=== PATIENT | male | born 1985 | race Caucasian/White ===

== ENCOUNTER → 2021-08-13 15:16 | Outpatient (CLI) | payer OTHER, SELFPAY ==
--- NOTE | 2021-08-13 15:22 | XR_ITS ---
FINAL REPORT CLINICAL HISTORY: RT WRIST PAIN. no trauma. posterior wrist pain. some swelling FINDINGS: RIGHT WRIST Three views of the right wrist were obtained. There is fragmentation of the proximal aspect of the lunate which may represent sequela of osteonecrosis or possibly a fracture. There is a 4 mm bony fragment at the volar aspect of the wrist on the lateral view. There is soft tissue swelling. IMPRESSION: Fragmentation of the proximal aspect of the lunate may represent sequela of osteonecrosis or possible fracture. Bony fragment at the volar aspect of the wrist measuring 4 mm. Reviewed, Interpreted and Dictated by Leo Davila III, MD Transcribed by Mirtha Kidd Authenticated by Leo Davila III, MD on 08/13/2021 04:36:57 PM [facility]
== END ==
PROVIDERS: PCP Nurse Practitioner Family; Visit Provider Nurse Practitioner Family
DX: M25.531 Pain in right wrist (principal)
CPT/HCPCS: 73110

== ENCOUNTER 2022-02-09 18:25 | Emergency (ER) | payer OTHER, SELFPAY ==
--- NOTE | 2022-02-09 19:08 | EXP.UTC ---
Discharge Plan Disposition Patient Disposition: Home, Self-Care Condition: Good Prescriptions Prescriptions: New azithromycin [Zithromax] 250 mg tablet 250 mg PO UD DOSE PK Qty: 6 0RF Rx Instructions: Take two (2) tablets today, then one (1) tablet days #2 thru #5 benzonatate [benzonatate] 100 mg capsule 100 mg PO TIDP PRN (Reason: Cough) Qty: 30 0RF methylprednisolone 4 mg Tablets,Dose Pack 4 mg PO DIRECTED Qty: 21 0RF No Action cephalexin 500 MG capsule 500 mg PO TID Qty: 30 0RF Referrals Follow up/Referrals: Fredi Sorto MD [Primary Care Provider] - See instructions Activity Restrictions/Add. Instructions Additional Instructions/Restrictions: Drink plenty of fluids. Take tylenol or ibuprofen for pain or fever. Take the medications as directed. Follow up with your regular doctor. GO TO THE ER FOR ANY WORSENING SYMPTOMS Clinical Impressions Clinical Impression: Bronchitis, Acute viral syndrome Stand Alone Forms Stand Alone Forms: Work/School Release Instructions Patient Instructions: Acute Bronchitis, DI for Acute Bronchitis, DI for Viral Syndrome Discharge ED Provider: Ashwin Lima [facility] General Stated complaint: cough, low grade fever, sore throat, congestion Time Seen by Provider: 02/09/22 19:08 History of Present Illness Provider Complaint: He states that since yesterday he has had fever, chills, sore throat, and a productive cough with greenish sputum. Related Data Previous Rx's Medication Instructions Recorded cephalexin 500 mg capsule 500 mg PO TID #30 caps 11/08/18 azithromycin 250 mg tablet 250 mg PO UD DOSE PK #6 tabs 02/09/22 (Zithromax) benzonatate 100 mg capsule 100 mg PO TIDP PRN Cough #30 caps 02/09/22 methylprednisolone 4 mg tablets in 4 mg PO DIRECTED #21 tabs 02/09/22 a dose pack Allergies Allergy/AdvReac Type Severity Reaction Status Date / Time ASA (aspirin) Allergy Intermediate I-ITCHING Uncoded 03/15/17 15:14 Codeine Allergy Unknown Uncoded 03/15/17 15:14 [facility] Social History Smoking Status: Current every day smoker tobacco type: cigarettes packs per day: 1 alcohol intake: never current occupational status: unemployed Travel in the last 8 weeks: None ROS Obtained: Yes All systems reviewed & no additional complaints except as documented Constitutional Constitutional: Reports chills and Reports fever(s) Eyes Eyes: Denies eye discharge ENT Ears, Nose, Mouth, and Throat: Reports as per HPI Cardiovascular Cardiovascular: Denies chest pain Respiratory Respiratory: Denies chest congestion and Reports cough Gastrointestinal Gastrointestingal: Reports nausea; Denies abdominal pain, constipation, cramping, diarrhea or vomiting Musculoskeletal Musculoskeletal: Denies arthralgias Integumentary/Breasts Skin/Breast: Denies rash Neurologic Neurologic: Denies paresthesias Physical Exam General General appearance: alert and in no apparent distress Head Head exam: atraumatic, normocephalic and normal inspection Eye Eye exam: Present normal appearance, PERRL and EOMI ENT ENT exam: Present normal exam, normal oropharynx, mucous membranes moist, TM's normal bilaterally and normal external ear exam Neck Neck exam: Present normal inspection, full ROM and trachea midline; Absent meningismus or lymphadenopathy Chest Chest inspection: Present normal inspection and symmetric chest wall rise; Absent tenderness Respiratory Respiratory exam: Present normal lung sounds bilaterally; Absent respiratory distress Cardiovascular Cardiovascular exam: Present regular rate and normal rhythm; Absent JVD Abdominal Exam Abdominal exam: Present soft and normal bowel sounds; Absent distention, tenderness or guarding Extremities Exam Extremities exam: Present normal inspection, full ROM and normal capillary refill; Absent calf tenderness Back Exam Back exam: Present norm
[2022-02-09 19:35] LABS: UTC Strep Screen (Rapid) Negative (Negative)
[2022-02-09 19:36] LABS: UTC Influenza A Antigen Negative (Negative)
[2022-02-09 19:37] LABS: UTC Influenza B Antigen Negative (Negative)
[2022-02-09 19:39] VITALS: BP 146/103; PULSE 99; RESP 18; TEMP 37.1; O2SAT 99; BMI 18.4
[2022-02-09 20:11] LABS: Adenovirus,PCR Not Detected (NotDetected); Bordetella Pertussis Not Detected (NotDetected); Chlamydophila Pneumoniae, PCR Not Detected (NotDetected); Coronavirus 19, PCR Not Detected (NotDetected); Coronavirus 229E Not Detected (NotDetected); Coronavirus NL63 Not Detected (NotDetected); Coronavirus OC43 Not Detected (NotDetected); Coronovirus HKU1,PCR Not Detected (NotDetected); Human Metapneumovirus Not Detected (NotDetected); Influenza A, PCR Not Detected (NotDetected); Influenza AH1, 2009 Not Detected (NotDetected); Influenza AH1, PCR Not Detected (NotDetected); Influenza AH3,PCR Not Detected (NotDetected); Influenza B, PCR Not Detected (NotDetected); Mycoplasma Pneumoniae, PCR Not Detected (NotDetected); Parainfluenza 2, PCR Not Detected (NotDetected); Parainfluenza 3, PCR Not Detected (NotDetected); Parainfluenza 4, PCR Not Detected (NotDetected); Respiratory Syncytial Virus Not Detected (NotDetected); Rhinovirus/Enterovirus Not Detected (NotDetected)
[2022-02-09 20:16] VITALS: BP 146/103; PULSE 99; RESP 18; TEMP 37.1
[2022-02-10 18:19] LABS: Parainfluenza 1, PCR Detected (NotDetected)
== END 2022-02-09 20:16 | disposition home or self-care (01) ==
PROVIDERS: Emergency Provider Nurse Practitioner Family; PCP Internal Medicine Adolescent Medicine
DX: J20.4 Acute bronchitis due to parainfluenza virus (principal)
CPT/HCPCS: 87581; 87632; 87798; 87804; 87880; 99212; C9803; G0463; U0003; U0005

== ENCOUNTER 2022-04-15 00:12 | Emergency (ER) | payer OTHER, SELFPAY ==
[2022-04-15 00:14] VITALS: BP 107/76; PULSE 90; RESP 17; TEMP 36.6; O2SAT 99; BMI 19.3
[2022-04-15 00:20] VITALS: BMI 25.1
--- NOTE | 2022-04-15 00:24 | XR_ITS ---
PROCEDURE INFORMATION: Exam: XR Right Wrist Exam date and time: 04/15/2022 12:20 AM Age: 36 years old Clinical indication: Patient HX: PT states pain for a while, however tonight he was working on his truck and injured right hand/wrist causing increase in pain; Additional info: Injury TECHNIQUE: Imaging protocol: Radiologic exam of the Right wrist. Views: 3 or more views. COMPARISON: CR XR WRIST RT MIN 3V 08/13/2021 3:24 PM FINDINGS: Bones/joints: Partially sclerotic and partially lucent appearance of the lunate bone is compatible with old injury or osteonecrosis. No acute fracture evident. Alignment of the carpal bones appears normal. Mild degenerative changes noted in the radiocarpal joint. Soft tissues: Normal. 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 No acute fracture seen.
--- NOTE | 2022-04-15 00:24 | XR_ITS ---
PROCEDURE INFORMATION: Exam: XR Right Hand Exam date and time: 04/15/2022 12:22 AM Age: 36 years old Clinical indication: Patient HX: PT states pain for a while, however tonight he was working on his truck and injured right hand/wrist causing increase in pain; Additional info: Injury TECHNIQUE: Imaging protocol: Radiologic exam of the Right hand. Views: 3 or more views. COMPARISON: CR XR WRIST RT MIN 3V 04/15/2022 12:20 AM FINDINGS: Bones/joints: Osseous alignment is normal. No acute fracture seen. Evidence of old fracture or osteonecrosis of the lunate bone noted in the wrist. No other osseous abnormality seen. Soft tissues: Normal. IMPRESSION: Chronic findings in the wrist. No acute fracture evident
[2022-04-15 00:38] VITALS: BMI 19.3
[2022-04-15 00:58] VITALS: BP 130/85; PULSE 88; RESP 16; TEMP 36.7; O2SAT 98
--- NOTE | 2022-04-15 00:58 | HMH.EDUPEXT ---
Discharge Plan Disposition Patient Disposition: Home, Self-Care Chief Complaint: Extremity Injury, Upper Prescriptions Prescriptions: No Action No Known Home Medications Referrals Follow up/Referrals: Fredi Sorto MD [Primary Care Provider] - See instructions Clinical Impressions Clinical Impression: Sprain and strain of wrist Instructions Patient Instructions: DI for Wrist Strain Discharge ED Provider: Jacinto Gomez Upper Extremity HPI General Chief Complaint: Extremity Injury, Upper Stated Complaint: AO 04/15/22 17:30 Injury right wrist Time Seen by Provider: 04/15/22 00:58 Mode of Arrival: Family Vehicle Source of Information: Patient, Spouse and Medical Record Limitations: No Limitations Description of Symptoms (Recalled from ER Triage Doc. by RN): Pt c/o R hand and wrist pain. States last night @1700 a muffler fell on it causing swelling and painful extension of wrist. He reports he has an ongoing issue with his R wrist causing occasion pain. States I think it's a bone chip in there . Pt took 800mg Motrin @ 1900 and iced it. Family member gave pt a wrist brace and pt reports it has helped his pain mildly. Radial pulse and [employer] are WNL. History of Present Illness HPI narrative: pt with acute rt wrist/hand injury complaint: injury to: right, wrist and hand Onset (ago): hour(s) Other Extremity Injury: Right: hand and wrist Other injuries: none Handedness: right Place: home Severity: moderate Context: direct blow Associated symptoms: denies other symptoms Related Data Home Medications Medication Instructions Recorded Confirmed No Known Home Medications 04/15/22 04/15/22 Allergies Allergy/AdvReac Type Severity Reaction Status Date / Time ASA (aspirin) Allergy Intermediate I-ITCHING Uncoded 03/15/17 15:14 [facility] Disclaimer: The information contained in this section may have been updated after the patient was seen, as this information can be updated by other users. Social History Smoking Status: Current every day smoker tobacco type: cigarettes packs per day: 1 alcohol intake: never current occupational status: unemployed Travel in the last 8 weeks: None ROS Obtained: Yes All systems reviewed & no additional complaints except as documented Physical Exam General General appearance: alert Head Head exam: normocephalic Eye Eye exam: Present PERRL and EOMI ENT ENT exam: Present mucous membranes moist Neck Neck exam: Present full ROM and trachea midline Respiratory Respiratory exam: Absent respiratory distress Cardiovascular Cardiovascular exam: Present regular rate Abdominal Exam Abdominal exam: Present soft Expanded Upper Extremity Exam Right: Forearm/Wrist exam: Present tenderness and swelling; Absent full ROM Hand exam: Present tenderness and swelling; Absent full ROM Vascular exam: Normal radial pulse Neurological Exam Neurological exam: Present alert, oriented X3 and CN II-XII intact Psychiatric Psychiatric exam: Present normal affect Skin Skin exam: Absent rash Medical Decision Making Medical Records Medical records reviewed: Yes I reviewed the patient's medical records. Jay Inquiry Pt receiving controlled substance: No Vital Signs: 04/15/22 00:14 Temperature 97.9 F Temperature Source Oral Pulse Rate [Left] 90 Respiratory Rate 17 Blood Pressure [Left Arm] 107/76 L Blood Pressure Mean [Left Arm] 86 Blood Pressure Source [Left Arm] Automatic Cuff 02 Sat by Pulse Oximetry 99 Oxygen Delivery Method Room Air Lab Data Lab results reviewed: Yes I reviewed the patient's lab results. Orders (Tests/Meds): ED MEDICATIONS Generic Name Dose Route Start Last Admin Trade Name Beatriz PRN Reason Stop Dose Admin Acetaminophen/Codeine Phosphate 1 packet 04/15/22 00:56 Acetaminophen 300mg W/Codeine 30mg Take Home Pack (6) PO 04/15/22 00:57 ONCE ONE OR
== END 2022-04-15 01:14 | disposition home or self-care (01) ==
PROVIDERS: Emergency Provider Emergency Medicine; PCP Internal Medicine Adolescent Medicine
DX: S63.501A Unspecified sprain of right wrist, initial encounter (principal); S66.811A Strain of other specified muscles, fascia and tendons at wrist and hand level, right hand, initial encounter; W20.8XXA Other cause of strike by thrown, projected or falling object, initial encounter; F17.210 Nicotine dependence, cigarettes, uncomplicated
CPT/HCPCS: 73110; 73130; 99283; 99284

== ENCOUNTER 2022-05-26 22:55 | Emergency (ER) | payer OTHER, SELFPAY ==
--- NOTE | 2022-05-26 23:01 | PC.NURSE ---
Dr. Gomez at
--- NOTE | 2022-05-26 23:16 | PC.NURSE ---
Dr. Gomez states pt is going to leave without being completely seen.
[2022-05-26 23:20] VITALS: BP 136/88; PULSE 92; RESP 20; TEMP 36.6; O2SAT 99
== END 2022-05-26 23:30 | disposition left against medical advice (07) ==
LOC: ER 23:30
PROVIDERS: Emergency Provider Emergency Medicine
DX: Z53.21 Procedure and treatment not carried out due to patient leaving prior to being seen by health care provider (principal); R51.9 Headache, unspecified
CPT/HCPCS: 99211

== ENCOUNTER 2022-10-27 23:53 | Emergency (ER) | payer OTHER, SELFPAY ==
[2022-10-27 23:55] VITALS: BP 188/134; PULSE 101; RESP 18; TEMP 37.1; O2SAT 98; BMI 19.8
--- NOTE | 2022-10-28 00:04 | CT_ITS ---
PROCEDURE INFORMATION: Exam: CT Maxillofacial With Contrast Exam date and time: 10/28/2022 12:28 AM Age: 37 years old Clinical indication: Jaw pain; Prior surgery; Surgery date: 6+ months; Additional info: L jaw pain and intraoral swelling edentalous TECHNIQUE: Imaging protocol: Computed tomography of the face with contrast. Radiation optimization: All CT scans at this facility use at least one of these dose optimization techniques: automated exposure control; mA and/or kV adjustment per patient size (includes targeted exams where dose is matched to clinical indication); or iterative reconstruction. Contrast material: ISOVUE; Contrast volume: 100 ml; Contrast route: IV; REPORTING DATA: Count of CT and Cardiac NM exams in prior 12 months: This patient has received 0 known CTs and 0 known cardiac nuclear medicine studies in the 12 months prior to the current study. COMPARISON: No relevant prior studies available. FINDINGS: Orbital cavities: Orbits are normal. Globes are unremarkable. Bones/joints: There is malleable plate fixation of the mandibular bodies and mental region. There is lucency surrounding one of the posterior fixation screws of the left mandibular body. The osseous lucency is noted on series 4, centered on images 56 and 57. I do not appreciate an adjacent phlegmon or abscess on this examination. There is perhaps some gingival hypertrophy in this region relative to the right side. The osseous structures are otherwise unremarkable. Paranasal sinuses: There is mild opacification of the ethmoid air cells with mucoperiosteal thickening in the left maxillary sinus. No air-fluid levels. Soft tissues: See Bones/joints finding. IMPRESSION: Lucency surrounding one of the posterior screws fixating the left mandibular body. This may be related to stress related bony resorption however, infection is not entirely excluded. I do not appreciate a phlegmon or abscess. There is perhaps some gingival hyperplasia in this region.
--- NOTE | 2022-10-28 00:11 | HMH.EDGENADL ---
Discharge Plan Disposition Patient Disposition: Home, Self-Care Condition: Good Chief Complaint: PAIN Prescriptions Prescriptions: No Action No Known Home Medications Referrals Follow up/Referrals: Provider,Referral, MD [Primary Care Provider] - See instructions Activity Restrictions/Add. Instructions Additional Instructions/Restrictions: At this time is felt you are safe to be discharged home. If new or worsening symptoms please do not hesitate to return the emergency department. Please take antibiotics as prescribed and follow-up with your dentist or fabricator of your dentures as soon as possible. Clinical Impressions Clinical Impression: Mouth pain Discharge ED Provider: Anoop Zheng General Adult HPI General Chief complaint: PAIN Stated complaint: Left lower jaw pain,has no teeth Time Seen by Provider: 10/27/22 23:57 History of Present Illness HPI narrative: Patient is a 37-year-old male with past medical history of trauma requiring facial surgery on his jaw, currently edentulous who presents to the emergency department for evaluation of jaw pain. Onset was acute, occurring last Tuesday. Left-sided jaw pain and associated swelling. Patient has no difficulty opening his mouth however cannot wear his dentures without significant pain. He acknowledges that they are incorrect size however states that the pain is more due to the swelling on the left mandibular side of his mouth. Afebrile. 1 episode of nonbloody nonbilious vomiting. No other acute complaints at this time. Related Data Home Medications Medication Instructions Recorded Confirmed No Known Home Medications 04/15/22 04/15/22 Allergies Allergy/AdvReac Type Severity Reaction Status Date / Time ASA (aspirin) Allergy Intermediate I-ITCHING Uncoded 03/15/17 15:14 [facility] Disclaimer: The information contained in this section may have been updated after the patient was seen, as this information can be updated by other users. Social History Smoking Status: Current every day smoker tobacco type: cigarettes packs per day: 1 alcohol intake: never current occupational status: unemployed Travel in the last 8 weeks: None ROS Obtained: Yes Systems reviewed as appropriate & no additional complaints except as documented Physical Exam General General appearance: alert and in no apparent distress Head Head exam: atraumatic and normocephalic Eye Eye exam: Present PERRL and EOMI ENT ENT exam: Present mucous membranes moist and other (Edentulous, asymmetric swelling over location where mandibular molars would be anatomically. Tenderness. No overt fluctuance. No trismus.) Neck Neck exam: Present normal inspection and full ROM Chest Chest inspection: Present normal inspection and symmetric chest wall rise Respiratory Respiratory exam: Present normal lung sounds bilaterally; Absent respiratory distress Cardiovascular Cardiovascular exam: Present normal rhythm and tachycardia Abdominal Exam Abdominal exam: Present soft; Absent tenderness Extremities Exam Extremities exam: Present normal inspection Neurological Exam Neurological exam: Present alert and oriented X3 Psychiatric Psychiatric exam: Present normal affect Skin Skin exam: Present warm and dry Medical Decision Making Jay Inquiry Pt receiving controlled substance: No Vital Signs: 10/27/22 23:55 Temperature 98.7 F Temperature Source Oral Pulse Rate [Right Radial] 101 H Respiratory Rate 18 Blood Pressure [Right Arm] 188/134 H Blood Pressure Mean [Right Arm] 152 Blood Pressure Source [Right Arm] Automatic Cuff Blood Pressure Position [Right Arm] Sitting 02 Sat by Pulse Oximetry 98 Oxygen Delivery Method Room Air Lab Data Lab Results 10/28/22 00:19: WBC 8.3, RBC 5.40, Hgb 15.7, Hct 48.8, MCV 90.3, MCH 29.0, MCHC 32.1, RDW 12.8, Plt Count 257, MPV 7.7, Neut % (Auto) 56.4, Lymph % (Auto)
[2022-10-28 00:14] VITALS: BP 166/110; PULSE 89; RESP 18; TEMP 36.6; O2SAT 99
[2022-10-28 00:21] VITALS: BP 169/120; PULSE 97; RESP 20; O2SAT 97
[2022-10-28 00:30] LABS: Basophils # 0.1 K/mm3 (0-0.2); Basophils % 0.9 % (0.1-2.0); Eosinophils # 0.4 K/mm3 (0.0-0.4); Eosinophils % 4.6 % (0.1-12.0); Hematocrit 48.8 % (42.0-52.0); Hemoglobin 15.7 g/dL (14.1-18.0); Lymphocytes # 2.5 K/mm3 (0.7-4.5); Lymphocytes % 30.2 % (10-50); Mean Corpuscular HGB Conc 32.1 g/dL (31.8-35.4); Mean Corpuscular Volume 90.3 fl (80-94); Mean Platelet Volume 7.7 fl (7.4-10.4); Monocytes # 0.7 K/mm3 (0.1-1.0); Neutrophils # 4.7 K/mm3 (1.8-7.8); Neutrophils % 56.4 % (37.0-80.0); Platelet Count 257 K/mm3 (142-424); Red Cell Distribution Width 12.8 % (11.5-17.5); White Blood Count 8.3 K/mm3 (4.8-10.8)
[2022-10-28 00:37] LABS: Alanine Aminotransferase 27 U/L (12-78); Albumin Level 4.8 g/dl (3.5-5.0); Albumin/Globulin Ratio 1.4 (1.1-1.8); Alkaline Phosphatase 67 U/L (38-126); Anion Gap 11.7 mEq/L (5-15); Aspartate Amino Transferase 37 U/L (17-59); Blood Urea Nitrogen 21 mg/dl (9-20); Calcium 9.2 mg/dl (8.4-10.2); Carbon Dioxide 30 mmol/L (22.0-30.0); Chloride 104 mmol/L (98-107); Creatinine Clearance Estimated 106 mL/min (50-200); Estimated Glomerular Filt Rate 94 ml/min (>60); GFR (African American) 114 ML/MIN (>60); Globulin 3.4 g/dL (1.3-3.2); Glucose 101 mg/dl (74-100); Potassium 3.7 mmoL/L (3.5-5.1); Sodium 142 mmol/L (136-145); Total Protein,Serum 8.2 g/dl (6.3-8.2)
[2022-10-28 00:38] LABS: Bilirubin,Total 0.1 mg/dl (0.2-1.3)
[2022-10-28 00:43] LABS: C-Reactive Protein 0.4 mg/L (0-4)
[2022-10-28 01:00] VITALS: BP 166/110; PULSE 90; RESP 18; O2SAT 96
[2022-10-28 01:19] VITALS: BP 151/103; PULSE 89; RESP 18; TEMP 36.6; O2SAT 99
== END 2022-10-28 01:25 | disposition home or self-care (01) ==
PROVIDERS: Emergency Provider Emergency Medicine
DX: R68.84 Jaw pain (principal); K08.109 Complete loss of teeth, unspecified cause, unspecified class; R11.10 Vomiting, unspecified; F17.210 Nicotine dependence, cigarettes, uncomplicated
CPT/HCPCS: 70487; 80053; 85025; 86140; 87040; 96374; 96375; 99285; Q9967

== ENCOUNTER 2023-07-12 09:31 | Emergency (ER) | payer OTHER, SELFPAY ==
[2023-07-12 09:40] VITALS: BP 162/92; PULSE 103; RESP 18; TEMP 37.1; O2SAT 99; BMI 21.1
--- NOTE | 2023-07-12 10:11 | EXP.UTC ---
Discharge Plan Disposition Patient Disposition: Home, Self-Care Condition: Good Prescriptions Prescriptions: New triamcinolone acetonide 0.1 % cream 1 applic topical BID PRN (Reason: itching) Qty: 30 0RF diphenhydramine HCl 25 mg capsule 25 mg PO Q6HP PRN (Reason: Itching) Qty: 30 0RF methylprednisolone 4 mg Tablets,Dose Pack 4 mg PO DIRECTED 6 Days Qty: 21 0RF Rx Instructions: Take 1 pack as directed for 6 days Referrals Follow up/Referrals: Provider,Referral, MD [Primary Care Provider] - See instructions Activity Restrictions/Add. Instructions Additional Instructions/Restrictions: Try to identify and avoid contact with the offending substance. Don't start the oral steroids (medrol dose pack) until tomorrow. Try to take the bendedryl regularly for the next few days to control the itching. It will make you drowsy, so don't drive or operate heavy machinery after taking it. Don't put the topical steroids (triamcinolone) on your face or your groin. Follow up with your regular doctor. GO TO THE ER FOR ANY WORSENING SYMPTOMS OR CONCERNS Clinical Impressions Clinical Impression: Contact dermatitis Stand Alone Forms Stand Alone Forms: Work/School Release Instructions Patient Instructions: DI for Contact Dermatitis, DI for Poison Rosie Allergy, Triamcinolone Topical, Diphenhydramine, Methylprednisolone, Dexamethasone Injection Discharge ED Provider: Ashwin Lima [facility] General Stated complaint: rash in eyes Mode of Arrival: Ambulatory Source of Information: Patient Limitations: No Limitations Time Seen by Provider: 07/12/23 10:11 Description of Symptoms (Recalled from Triage Doc. by RN): Pt has rash (poision rosie) all over face (eyes), arms, hands, and groin area. HEENT Symptoms (Recalled from RN notes): No Resp Symptoms (Recalled from RN notes): No Skin Symptoms (Recalled from RN notes): Yes MS Symptoms (Recalled from RN notes): No Functional Status (Recalled from RN notes): n/a History of Present Illness Provider Complaint: He states that for the past 1 day he has had an itchy rash on his face, neck, arms, and groin. He has been in contact with poison rosie. Related Data Previous Rx's Medication Instructions Recorded diphenhydramine HCl 25 mg capsule 25 mg PO Q6HP PRN Itching #30 caps 07/12/23 methylprednisolone 4 mg tablets in 4 mg PO DIRECTED 6 days #21 tabs 07/12/23 a dose pack triamcinolone acetonide 0.1 % 1 applic topical BID PRN itching 07/12/23 topical cream #30 grams Allergies Allergy/AdvReac Type Severity Reaction Status Date / Time aspirin Allergy Hives Verified 07/12/23 10:44 Worker's Comp Is this a Worker's Comp case?: No [facility] Disclaimer: The information contained in this section may have been updated after the patient was seen, as this information can be updated by other users. Social History Smoking Status: Current every day smoker tobacco type: cigarettes packs per day: 1 alcohol intake: never current occupational status: unemployed Travel in the last 8 weeks: None ROS Obtained: Yes All systems reviewed & no additional complaints except as documented Constitutional Constitutional: Denies chills and Denies fever(s) Eyes Eyes: Denies eye discharge ENT Ears, Nose, Mouth, and Throat: Denies dizziness, Denies otalgia and Denies sore throat Cardiovascular Cardiovascular: Denies chest pain Respiratory Respiratory: Denies shortness of breath, Denies chest congestion, Denies cough, Denies stridor and Denies wheezing Gastrointestinal Gastrointestingal: Denies nausea or vomiting Musculoskeletal Musculoskeletal: Reports system reviewed and no additional complaints, except as documented and Denies arthralgias Integumentary/Breasts Skin/Breast: Reports as per HPI and Reports rash Neurologic Neurologic: Denies dizziness and Denies paresthesias Allergic/Immunologic Allergic/Immunologic: Denies wheezing Physical Exam General General appearance: alert and in no apparent distress Head Head exam: atraumatic, normocephalic and normal inspection Eye Eye exam: Present normal appearance, PERRL and EOMI ENT ENT exam: Present normal exam, normal oropharynx, mucous membranes moist, TM's normal bilaterally and normal external ear exam Neck Neck exam: Present normal inspection, full ROM and trachea midline; Absent meningismus or lymphadenopathy Chest Chest inspection: Present normal inspection and symmetric chest wall rise; Absent tenderness Respiratory Respiratory exam: Present normal lung sounds bilaterally; Absent respiratory distress Cardiovascular Cardiovascular exam: Present regular rate and normal rhythm; Absent JVD Abdominal Exam Abdominal exam: Present soft and normal bowel sounds; Absent distention, tenderness or guarding Extremities Exam Extremities exam: Present normal inspection, full ROM and normal capillary refill; Absent calf tenderness Back Exam Back exam: Present normal inspection; Absent tenderness Neurological Exam Neurological exam: Present alert and oriented X3 Psychiatric Psychiatric exam: Present normal affect and normal mood Skin Skin exam: Present rash Lymphatic Lymphatic Findings: no adenopathy Medical Decision Making Medical Records Medical records reviewed: No I reviewed the patient's medical records. Jay Inquiry Pt receiving controlled substance: No Vital Signs: 07/12/23 09:40 Temperature 98.7 F Temperature Source Oral Pulse Rate [Right Radial] 103 H Respiratory Rate 18 Blood Pressure [Right Arm] 162/92 H Blood Pressure Mean [Right Arm] 115 Blood Pressure Source [Right Arm] Automatic Cuff Blood Pressure Position [Right Arm] Sitting 02 Sat by Pulse Oximetry 99 Oxygen Delivery Method Room Air
[2023-07-12] MEDS: DEXAMETHASONE 4MG/ML 1ML VIAL 8 MG IM (10:30)
[2023-07-12 11:15] VITALS: BP 162/92; PULSE 103; RESP 18; TEMP 37.1; O2SAT 99
== END 2023-07-12 10:50 | disposition home or self-care (01) ==
PROVIDERS: Emergency Provider Nurse Practitioner Family
DX: L23.7 Allergic contact dermatitis due to plants, except food (principal); F17.210 Nicotine dependence, cigarettes, uncomplicated; W60.XXXA Contact with nonvenomous plant thorns and spines and sharp leaves, initial encounter
CPT/HCPCS: 96372; 99212; 99214; G0463

== ENCOUNTER 2024-04-03 11:50 | Emergency (ER) | payer OTHER, SELFPAY ==
--- NOTE | 2024-04-03 12:04 | EXP.UTC ---
Discharge Plan Disposition Patient Disposition: Still a Patient Condition: Fair Referrals Follow up/Referrals: Provider,Referral, [Primary Care Provider] - See instructions Clinical Impressions Clinical Impression: Facial numbness Print Language Print Language: Micronesian Discharge ED Provider: Maximo Tinajero [facility] [place] HPI General Stated complaint: R side facwe swollen cant shut R eye possible nikos Time Seen by Provider: 04/03/24 12:03 History of Present Illness Provider Complaint: He states that for the past 1 day he has had right sided facial paralysis and decreased sensation. He denies any weakness in other locations. He also c/o headache and elevated blood pressure. Related Data Allergies Allergy/AdvReac Type Severity Reaction Status Date / Time aspirin Allergy Hives Verified 07/12/23 10:44 [facility] [place] Disclaimer: The information contained in this section may have been updated after the patient was seen, as this information can be updated by other users. Social History Smoking Status: Current every day smoker tobacco type: cigarettes packs per day: 1 alcohol intake: never current occupational status: unemployed Travel in the last 8 weeks: None Have you lived/traveled outside US in past 30 days?: No Contact w/someone who lives/traveled outside US past 30 days?: No Exposure to someone with infectious disease in past 14 days?: No Do you have a fever (greater than 100.4 F or 38 C)?: No Have you tested positive for COVID-19: No Exposed to someone with COVID-19 in past 14 days?: No Do you have a sore throat?: Yes Do you have a cough?: Yes Do you have any weakness?: No Do you have any diarrhea?: No Are you experiencing any unusual bleeding?: No Do you have any muscle aches/pain?: No Do you have any abdominal pain?: No Are you experiencing loss of taste or smell?: No ROS Obtained: Yes All systems reviewed & no additional complaints except as documented Constitutional Constitutional: Denies chills, Denies fever(s) and Reports headache(s) Eyes Eyes: Denies eye discharge ENT Ears, Nose, Mouth, and Throat: Denies dizziness, Denies otalgia, Reports headache(s) and Denies sore throat Cardiovascular Cardiovascular: Denies chest pain Respiratory Respiratory: Denies shortness of breath, Denies chest congestion, Denies cough, Denies stridor and Denies wheezing Gastrointestinal Gastrointestingal: Denies nausea or vomiting Musculoskeletal Musculoskeletal: Reports as per HPI Integumentary/Breasts Skin/Breast: Denies rash Neurologic Neurologic: Reports as per HPI, Denies dizziness, Reports headache(s) and Reports paresthesias Allergic/Immunologic Allergic/Immunologic: Denies wheezing Physical Exam General General appearance: alert and in no apparent distress Head Head exam: atraumatic, normocephalic and normal inspection Eye Eye exam: Present normal appearance, PERRL and EOMI ENT ENT exam: Present normal exam, normal oropharynx, mucous membranes moist, TM's normal bilaterally and normal external ear exam Neck Neck exam: Present normal inspection, full ROM and trachea midline; Absent meningismus or lymphadenopathy Chest Chest inspection: Present normal inspection and symmetric chest wall rise; Absent tenderness Respiratory Respiratory exam: Present normal lung sounds bilaterally; Absent respiratory distress Cardiovascular Cardiovascular exam: Present regular rate and normal rhythm; Absent JVD Abdominal Exam Abdominal exam: Present soft and normal bowel sounds; Absent distention, tenderness or guarding Extremities Exam Extremities exam: Present normal inspection, full ROM and normal capillary refill; Absent calf tenderness Back Exam Back exam: Present normal inspection; Absent tenderness Neurological Exam Neurological exam: Present alert, oriented X3, normal gait and reflexes normal; Absent CN II-XII intact Psychiatric Psychiatric exam: Present normal affect and normal mood Skin Skin exam: Present warm, dry, intact and normal color Lymphatic Lymphatic Findings: no adenopathy Medical Decision Making Medical Records Medical records reviewed: No I reviewed the patient's medical records. Screening: Per USPSTF and CDC recommendations, given the prevalence of disease in our region, it is our hospital?s policy to screen for HIV and viral Hepatitis for all patients aged 18 and over and those with ongoing risk factors. Jay Inquiry Pt receiving controlled substance: No Medical Decision Narrative: He was transferred to the ER for further evaluation.
[2024-04-03 12:05] VITALS: BP 193/125; PULSE 97; RESP 18; TEMP 36.7; O2SAT 100; BMI 21.5
--- NOTE | 2024-04-03 12:25 | PC.NURSE ---
DR ADAM AT BEDSIDE
[2024-04-03 12:26] VITALS: BP 157/130; PULSE 102; RESP 16; TEMP 36.7; O2SAT 100; BMI 21.5
[2024-04-03 12:31] VITALS: BP 170/130; PULSE 102; O2SAT 99
[2024-04-03 12:45] VITALS: BP 157/115; PULSE 102; O2SAT 98
--- NOTE | 2024-04-03 13:00 | HMH.EDGENADL ---
Discharge Plan Disposition Patient Disposition: Home, Self-Care Condition: Fair Prescriptions Prescriptions: New prednisone 10 mg tablet 10 mg PO DIRECTED Qty: 54 0RF Rx Instructions: see taper instructions 40 mg for 5 days 30 mg for 5 days 20 mg for 5 days 10 mg for 5 days 5 mg for 5 days Referrals Follow up/Referrals: Provider,Referral, [Primary Care Provider] - See instructions Activity Restrictions/Add. Instructions Additional Instructions/Restrictions: Prednisone taper as prescribed. Call your family doctor to establish care for this visit to the emergency department and schedule follow-up within 48 hours to ensure improvement. If you have any worsening of your condition or any other concerning signs or symptoms, return to the emergency department or your primary care doctor for further evaluation. Clinical Impressions Clinical Impression: Facial numbness Print Language Print Language: Niuean Discharge ED Provider: Maximo Tinajero General Adult HPI General Chief complaint: Neuro Symptoms/Deficit Stated complaint: R side facwe swollen cant shut R eye possible nikos Time Seen by Provider: 04/03/24 12:03 Mode of Arrival: Ambulatory Source of Information: Patient Limitations: No Limitations Description of Symptoms (Recalled from ER Triage Doc. by RN): Patient reports swelling and numbness of right side of his face since the 5th. States it feels as if his face is swollen. History of Present Illness HPI narrative: Please note that above description of symptoms, in this electronic medical record under categorization of recalled from ER triage doctor by RN are reflective of an initial nursing assessment, however, is not reflective of my full history and physical exam that was personally taken and clarified. Consequentially, this preceding description of symptoms, which may include the patient's categorized chief complaint in the EMR, do not reflect my personal clinical impression, and the ultimate description of history of present illness and patient stated complaints should be deferred to this section of the note. Unless stated otherwise or congruent with this section of the note, additional signs, symptoms, or incongruence should be interpreted as inaccurate with my clinical impression. Related Data Previous Rx's ?Medication ?Instructions ?Recorded prednisone 10 mg tablet 10 mg PO DIRECTED #54 tabs 04/03/24 Allergies Allergy/AdvReac Type Severity Reaction Status Date / Time aspirin Allergy Hives Verified 07/12/23 10:44 [facility] Disclaimer: The information contained in this section may have been updated after the patient was seen, as this information can be updated by other users. Social History Smoking Status: Current every day smoker tobacco type: cigarettes packs per day: 1 alcohol intake: never current occupational status: unemployed Travel in the last 8 weeks: None Have you lived/traveled outside US in past 30 days?: No Contact w/someone who lives/traveled outside US past 30 days?: No Exposure to someone with infectious disease in past 14 days?: No Do you have a fever (greater than 100.4 F or 38 C)?: No Have you tested positive for COVID-19: No Exposed to someone with COVID-19 in past 14 days?: No Do you have a sore throat?: Yes Do you have a cough?: Yes Do you have any weakness?: No Do you have any diarrhea?: No Are you experiencing any unusual bleeding?: No Do you have any muscle aches/pain?: No Do you have any abdominal pain?: No Are you experiencing loss of taste or smell?: No Other Medical History Have you received the Flu Vaccine for this season: No Have you received the Pneumonia Vaccine: No ROS Obtained: Yes All systems reviewed & no additional complaints except as documented Physical Exam General General appearance: alert and in no apparent distress Head Head exam: atraumatic and normocephalic Eye Eye exam: Present PERRL and EOMI; Absent normal appearance Neck Neck exam: Present normal inspection, full ROM and trachea midline Respiratory Respiratory exam: Absent respiratory distress, wheezes, stridor, accessory muscle use or prolonged expiratory phase Cardiovascular Cardiovascular exam: Present other (Pulses equal symmetric in upper and lower extremities) Abdominal Exam Abdominal exam: Present soft; Absent distention, tenderness or pulsatile mass Extremities Exam Extremities exam: Absent edema Neurological Exam Neurological exam: Present alert, oriented X3, CN II-XII intact and motor sensory deficit (Cranial nerve deficit on the right with weakness not sparing forehead.) Skin Skin exam: Present warm and dry; Absent diaphoresis or erythema Medical Decision Making Medical Records Medical records reviewed: Yes I reviewed the patient's medical records. Screening: Per USPSTF and CDC recommendations, given the prevalence of disease in our region, it is our hospital?s policy to screen for HIV and viral Hepatitis for all patients aged 18 and over and those with ongoing risk factors. Jay Inquiry Pt receiving controlled substance: No Jay was queried for this patient: No Vital Signs: 04/03/24 12:05 04/03/24 12:26 04/03/24 12:31 Temperature 98.1 F 98.1 F Temperature Source Oral Oral Pulse Rate 102 H Pulse Rate [Left Radial] 97 H 102 H Respiratory Rate 18 16 Blood Pressure 170/130 H Blood Pressure [Left Arm] 193/125 H 157/130 H Blood Pressure Mean [Left Arm] 147 139 Blood Pressure Source [Left Arm] Automatic Cuff Blood Pressure Position [Left Arm] Sitting 02 Sat by Pulse Oximetry 100 100 99 Oxygen Delivery Method Room Air Room Air 04/03/24 12:45 Temperature Temperature Source Pulse Rate 102 H Pulse Rate [Left Radial] Respiratory Rate Blood Pressure 157/115 H Blood Pressure [Left Arm] Blood Pressure Mean [Left Arm] Blood Pressure Source [Left Arm] Blood Pressure Position [Left Arm] 02 Sat by Pulse Oximetry 98 Oxygen Delivery Method Room Air Orders (Tests/Meds): ED MEDICATIONS Discontinued Medications Generic Name Dose Route Start Last Admin Trade Name Freq PRN Reason Stop Dose Admin Prednisone 60 mg 04/03/24 13:00 04/03/24 13:04 Prednisone 20mg Tab PO 04/03/24 13:01 60 mg ONCE ONE Administration ORDERS Category Date Time Status HIV (1&2) Antibody Rapid Stat Lab 04/03/24 12:29 Ordered Hep C Ab with Reflex to RNA Stat Lab 04/03/24 12:29 Ordered Medical Decision Narrative: This is a 38-year-old male presenting with right-sided facial weakness. Patient states that he has been having viral symptoms for the past week or so. 2 days prior to this started having numbness around his right eye and yesterday, 1/6 started noticing that it was difficult to blink and patient having difficulty chewing because facial weakness. No upper extremity or lower extremity weakness, no other associated symptoms, no vision deficits. Came in for further evaluation. Went to the urgent care first, was sent here out of concern for stroke. History obtained the patient and urgent care provider. On my arrival, patient has right-sided facial weakness and droop with inability to completely close right eye. Sensation deficit as well. Does not spare forehead with wrinkle flattening on the right as well. Neurologically intact otherwise with intact visual acuity, EOMs, strength, cerebellar, motor and sensory exams. 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 imaging of the head including angiograms of the head and neck were considered, but deemed unnecessary with otherwise completely normal neurologic exam. Labs were also considered to rule out electrolyte disturbances, but I feel this is clinically consistent with Cardenas's palsy and unnecessary at this time. Because patient at baseline without signs or symptoms of clinical decompensation, deemed appropriate for discharge. Results were relayed to patient who voiced understanding and were agreeable to outpatient management and follow up. I discussed my clinical impression with patient and answered all questions. At this time, the evidence for any other entities in the differential is insufficient to warrant any further testing or ED observation. This was explained as well. Advisory was given that persistent or worsening symptoms require further evaluation. I confirmed the understanding of this discussion. Community Association Manager disclaimer Much of this encounter note is an electronic lathe operator contact lens spoken language to printed text. Electronic lathe operator contact lens of the spoken language may permit errors. Although I have reviewed the note, some errors may still exist. Critical Care Critical Care Time Critical Care Time: No
[2024-04-03] MEDS: predniSONE 20MG TAB 60 MG PO (13:04)
[2024-04-03 13:16] VITALS: BP 157/130; PULSE 102; RESP 16; TEMP 36.7; O2SAT 100
== END 2024-04-03 13:17 | disposition home or self-care (01) ==
LOC: UTC 11:53 → ER 12:18
PROVIDERS: Emergency Provider Emergency Medicine
DX: R20.2 Paresthesia of skin (principal); R22.0 Localized swelling, mass and lump, head; R51.9 Headache, unspecified; I10 Essential (primary) hypertension; R29.810 Facial weakness; Z72.0 Tobacco use
CPT/HCPCS: 99283

== ENCOUNTER 2024-12-26 13:33 | Emergency (ER) | payer SELFPAY ==
[2024-12-26 13:56] VITALS: BP 158/93; PULSE 98; RESP 18; TEMP 36.7; O2SAT 98; BMI 20.3
--- NOTE | 2024-12-26 14:55 | XR_ITS ---
FINAL REPORT CLINICAL HISTORY: pain COMPARISON: None FINDINGS: LEFT SHOULDER Three views of the left shoulder were obtained. There is no acute fracture or dislocation. Visualized joint spaces are normally aligned. Soft tissues are unremarkable. IMPRESSION: No acute bony abnormality. Reviewed, Interpreted and Dictated by Gray Rosas MD Transcribed by Edilma Rodgers Authenticated and . [facility]
--- NOTE | 2024-12-26 14:55 | XR_ITS ---
FINAL REPORT CLINICAL HISTORY: pain and swelling COMPARISON: None FINDINGS: LEFT ELBOW Three views demonstrate no acute fracture or dislocation. The joint spaces appear normal. No acute soft tissue abnormality is seen. IMPRESSION: No acute bony abnormality. Reviewed, Interpreted and Dictated by Gray Rosas MD Transcribed by Edilma Rodgers Authenticated and [facility]
--- NOTE | 2024-12-26 14:55 | ED_ITS ---
<Statement entered by Mary Soto DO - 12/27/24 22:16> I was consulted by the MARY, and we discussed the complexity of problems being addressed. I approve the treatment and management plan for this patient's care in the emergency department, thus performing a substantial portion of the medical decision making. Mary Soto DO Discharge Plan Disposition Patient Disposition: Home, Self-Care Condition: Fair Prescriptions Prescriptions: New prednisone 20 mg tablet 20 mg PO BID 5 Days Qty: 10 0RF ketorolac 10 mg tablet 10 mg PO Q8H PRN (Reason: pain) 5 Days Qty: 20 0RF No Action prednisone 10 mg tablet 10 mg PO DIRECTED Qty: 54 0RF Rx Instructions: see taper instructions 40 mg for 5 days 30 mg for 5 days 20 mg for 5 days 10 mg for 5 days 5 mg for 5 days Referrals Follow up/Referrals: Tin Oh DO [Staff Physician, Orthopedics] - See instructions Provider,Referral, [Primary Care Provider, Medical] - See instructions Activity Restrictions/Add. Instructions Additional Instructions/Restrictions: Take meds as directed. Use heat or ice for comfort. Please call Dr. Oh for follow-up testing and further care. Clinical Impressions Clinical Impression: Tendinitis Stand Alone Forms Stand Alone Forms: Work/School Release Instructions Patient Instructions: DI for Tendinitis Print Language Print Language: Ecuadorean Discharge ED Provider: Mary Soto General Adult HPI General Chief complaint: Extremity Injury, Upper Stated complaint: Pain L arm Time Seen by Provider: 12/26/24 14:47 Mode of Arrival: Ambulatory Source of Information: Patient Description of Symptoms (Recalled from ER Triage Doc. by RN): Pt has had Left arm/shoulder pain for almost a year now, but states the pain has been so intense since yesterday he is unable to lift his arm without using his other hand. No radiating pain, just aching pain in the left arm. History of Present Illness HPI narrative: 39-year-old male presents today for left arm and shoulder pain for almost a year now. States that this started with aches and pains in his shoulder years ago and now its moved down to his left elbow since 4 to 6 months ago. He states that his elbow was swollen and it is painful and very sensitive to touch. Says it goes up into his shoulder and he is unable to lift his shoulder. He says at times he is unable to lift his shoulder to have full range of motion. He has no fevers or chills. No nausea, vomiting or diarrhea. No obvious deformity of his left arm. No obvious injury. Patient says he just wants it looked at to see if it can be fixed Related Data Previous Rx's ?Medication ?Instructions ?Recorded prednisone 10 mg tablet 10 mg PO DIRECTED #54 tab s 04/03/24 ketorolac 10 mg tablet 10 mg PO Q8H PRN pain 5 days #20 12/26/24 tabs prednisone 20 mg tablet 20 mg PO BID 5 days #10 tabs 12/26/24 Allergies Allergy/AdvReac Type Severity Reaction Status Date / Time aspirin Allergy Hives Verified 07/12/23 10:44 [facility] Disclaimer: The information contained in this section may have been updated after the patient was seen, as this information can be updated by other users. Social History Smoking Status: Current every day smoker tobacco type: cigarettes packs per day: 1 alcohol intake: never current occupational status: unemployed Travel in the last 8 weeks?: None Have you lived/traveled outside US in past 30 days?: No Contact w/someone who lives/traveled outside US past 30 days?: No Exposure to someone with infectious disease in past 14 days?: No Do you have a fever (greater than 100.4 F or 38 C)?: No Have you tested positive for COVID-19?: No Exposed to someone with COVID-19 in past 14 days?: No Do you have a sore throat?: No Do you have a cough?: No Do you have any weakness?: No Do you have any diarrhea?: No Are you experiencing any unusual bleeding?: No Do you have any muscle aches/pain?: No Do you have any abdominal pain?: No Are you experiencing loss of taste or smell?: No Other Medical History Have you received the Flu Vaccine for this season: No Have you received the Pneumonia Vaccine: No ROS Obtained: Yes Systems reviewed as appropriate & no additional complaints except as documented Constitutional Constitutional: Reports as per HPI Physical Exam General General appearance: alert Head Head exam: normocephalic Eye Eye exam: Present PERRL and EOMI ENT ENT exam: Present normal oropharynx and mucous membranes moist Neck Neck exam: Present full ROM and trachea midline Respiratory Respiratory exam: Present normal lung sounds bilaterally Cardiovascular Cardiovascular exam: Present regular rate, normal rhythm, normal heart sounds, +S1 and +S2 exam: Present normal inspection Extremities Exam Extremities exam: Present tenderness, normal capillary refill, joint swelling and other (Left shoulder pain with movement at all, left elbow pain) Neurological Exam Neurological exam: Present alert and oriented X3 Skin Skin exam: Present warm, dry and intact Medical Decision Making Medical Records Screening: Per USPSTF and CDC recommendations, given the prevalence of disease in our region, it is our hospital?s policy to screen for HIV and viral Hepatitis for all patients aged 18 and over and those with ongoing risk factors. Jay Inquiry Pt receiving controlled substance: No Jay was queried for this patient: No Vital Signs: 12/26/24 13:56 12/26/24 16:40 Temperature 98.1 F 98.1 F Temperature Source Oral Pulse Rate 95 H Pulse Rate [Right] 98 H Respiratory Rate 18 18 Blood Pressure 157/85 H Blood Pressure [Right Arm] 158/93 H Blood Pressure Mean [Right Arm] 114 Blood Pressure Source [Right Arm] Automatic Cuff Blood Pressure Position [Right Arm] Sitting 02 Sat by Pulse Oximetry 98 Oxygen Delivery Method Room Air Orders (Tests/Meds): ED MEDICATIONS Discontinued Medications Generic Name Dose Route Start Last Admin Trade Name Levq PRN Reason Stop Dose Admin Dexamethasone Sodium Phosphate 8 mg 12/26/24 15:15 12/26/24 15:24 Dexamethasone 4mg/Ml 5ml Mdv IM 01/25/25 15:14 8 mg Q6H CHARI Administration Ketorolac Tromethamine 60 mg 12/26/24 15:08 12/26/24 15:24 Ketorolac 60mg/2ml Vial IM 12/26/24 15:09 60 mg ONCE ONE Administration ORDERS Category Date Time Status Elbow XR left mininum 3 views [XR elbow LT min 3V] Stat Exams 12/26/24 14:55 Completed Shoulder XR left minimum 2 views [XR shoulder LT min 2V Exams 12/26/24 14:55 Completed ] Stat Medical Decision Narrative: patient is a 39-year-old male presenting to the emergency department for evaluation of left shoulder pain left elbow pain. Patient is hemodynamically stable and nontoxic-appearing upon arrival, afebrile. Differential diagnosis includes tendon or ligament injury rotator cuff injury, bursitis tendinitis among others. Workup will be conducted with specific imaging. Initial inventions include I M Dex and Toradol which seemed to help symptoms here in the ED. Imaging showed nothing acute. These were read by the radiology team. Patient will need to see Dr. Oh in follow-up for these chronic problems. I will send home with oral Toradol and steroid for tendinitis and overuse injuries. Patient will be safe for discharge home and follow-up with PCP and Dr. Oh. Critical Care Critical Care Time Critical Care Time: No
[2024-12-26] MEDS: DEXAMETHASONE 4MG/ML 5ML MDV 8 MG IM (15:24)
[2024-12-26] MEDS: KETOROLAC 60MG/2ML VIAL 60 MG IM (15:24)
[2024-12-26 16:40] VITALS: BP 157/85; PULSE 95; RESP 18; TEMP 36.7; O2SAT 98
== END 2024-12-26 16:41 | disposition home or self-care (01) ==
PROVIDERS: Emergency Provider Student in an Organized Health Care Education/Training Program
DX: M67.814 Other specified disorders of tendon, left shoulder (principal); M79.622 Pain in left upper arm
CPT/HCPCS: 73030; 73080; 96372; 99283; J1100; J1885